=== PATIENT | female | born 1970 | race Caucasian/White ===

== ENCOUNTER 2018-12-05 06:50 | Emergency (ER) | payer OTHER ==
[~2018-12-05] VITALS: Ht 167.6 cm; Wt 79.4 kg
[~2018-12-05 06:50] MED LIST: COMBIVENT RESPIM4 GM INH; DOXYCYCLINE HY100 M3 PO; PREDNISONE20 MG PO; PROVENTIL HFA6.7 GM INH
[2018-12-05] MEDS ORDERED: PREDNISONE20 MG PO (07:21)
[2018-12-05] MEDS ORDERED: VENTOLIN HFA18 GM INH (07:21)
== END 2018-12-05 07:50 | disposition home or self-care (01) ==
LOC: ED 06:50
DX: J40 Bronchitis, not specified as acute or chronic (principal); J98.01 Acute bronchospasm; F17.200 Nicotine dependence, unspecified, uncomplicated; Z90.710 Acquired absence of both cervix and uterus
CPT/HCPCS: 94640; 99283; J7512

== ENCOUNTER 2020-04-29 14:54 | Emergency (ER) | payer OTHER ==
[~2020-04-29] VITALS: Ht 167.6 cm; Wt 79.4 kg
[~2020-04-29 14:54] MED LIST changes: +VENTOLIN HFA18 GM INH
[2020-04-29] MEDS ORDERED: CYCLOBENZAPRINE10 MG PO (17:31)
== END 2020-04-29 17:42 | disposition home or self-care (01) ==
LOC: ED 14:54
DX: S16.1XXA Strain of muscle, fascia and tendon at neck level, initial encounter (principal); S50.12XA Contusion of left forearm, initial encounter; S50.11XA Contusion of right forearm, initial encounter; V43.52XA Car driver injured in collision with other type car in traffic accident, initial encounter; F17.200 Nicotine dependence, unspecified, uncomplicated
CPT/HCPCS: 99283

== ENCOUNTER 2024-03-20 17:05 | Emergency (ER) | payer OTHER ==
[~2024-03-20] VITALS: Ht 167.6 cm; Wt 79.6 kg
[~2024-03-20 17:05] MED LIST changes: +CYCLOBENZAPRINE10 MG PO
--- OUTSIDE RECORDS SUMMARY | 2024-03-20 17:11 | XMS ---
PreManage Notification: [employer] Events No recent Security Events currently on file CRITERIA MET - Group Notification CARE PROVIDERS -, [facility] Dentist: Choker Setter [facility] PHONE: [phone] -[place]- Dentist: Choker Setter [facility], [facility] PHONE: [phone] Dory has no Care Guidelines for this patient. Care History Medical/Surgical 05/17/2020 [facility] \R\- [facility] CALLED PATIENT- NO ANSWER- LEFT A MESSAGE \R\- NO PCP LETTER SENT TO PATIENT E.D. VISIT COUNT (12 MO.) 3 [facility] TOTAL 3 NOTE: Visits indicate total known visits. ED/UCC VISIT TRACKING (12 MO.) 03/20/2024 17:05 [facility] TYPE: Emergency COMPLAINT: - ABDOMINAL PAIN 10/27/2023 17:23 [facility] [place] TYPE: Emergency COMPLAINT: - ABDOMINAL PAIN DIAGNOSES: - Acquired absence of both cervix and uterus - Calculus of kidney - Constipation, unspecified - Nicotine dependence, unspecified, uncomplicated - Pelvic and perineal pain - Ventral hernia without obstruction or gangrene 09/29/2023 13:03 [facility] [place] TYPE: Emergency COMPLAINT: - EYE PAIN DIAGNOSES: - Conjunctival edema, left eye - Nicotine dependence, unspecified, uncomplicated - Other specified disorders of eye and adnexa INPATIENT VISIT TRACKING (12 MO.) No inpatient visits to display in this time frame [email or web address]
[2024-03-20] MEDS ORDERED: ondansetron HCL 4 MG/2 ML VIAL IV ONE (17:30)
[2024-03-20 17:49] LABS: BASOPHILS 0.9 % (0-2); EOSINOPHILS 1.9 % (0-6); HEMATOCRIT 41.3 % (35.0-50.0); HEMOGLOBIN 14.3 g/dL (12.0-18.0); LYMPHOCYTES 32.6 % (24-44); MCH 32.9 (27-36); MCHC 34.6 g/dl (30-36); MCV 95.1 fl (81-99); MONOCYTES 9.2 % (0-12); NEUTROPHILS 55.4 % (39-80); PLATELET COUNT 337 K/uL (140-440); RBC 4.34 M/ul (4.3-5.7); RDW 12.7 (10.5-15.0)
[2024-03-20 18:03] LABS: ALBUMIN 3.9 g/dL (3.4-5.0); ALBUMIN/GLOBULIN RATIO 1.22 (1.1-2.4); ANION GAP 14.1 (7-21); BILIRUBIN, TOTAL 0.3 ng/dL (0.2-1.0); BUN/CREATININE RATIO 13.46 (6.0-28.6); CALCIUM 9.6 mg/dL (8.5-10.1); CREATININE, SERUM 1.04 mg/dL (0.55-1.02); POTASSIUM 4.1 mmol/L (3.5-5.1); PROTEIN, TOTAL 7.1 g/dL (6.4-8.2)
[2024-03-20 18:30] LABS: BILIRUBIN, URINE NEGATIVE (negative); BLOOD/HGB, URINE NEGATIVE (Negative); KETONE, URINE NEGATIVE (Negative); LEUK ESTERASE, URINE NEGATIVE (negative); NITRITE, URINE NEGATIVE (negative)
[2024-03-20] MEDS ORDERED: LIDOCAINE & ANTACID 35 ML BTL PO ONE (19:00)
[2024-03-20] MEDS ORDERED: PANTOPRAZOLE SODIUM 40 MG TABEC PO ONE (19:30)
[2024-03-20 19:44] VITALS: BP 128/79
== END 2024-03-20 19:44 | disposition home or self-care (01) ==
LOC: ED 17:05
PROVIDERS: Emergency Medicine
DX: R10.13 Epigastric pain (principal); F17.200 Nicotine dependence, unspecified, uncomplicated
CPT/HCPCS: 36415; 80053; 81003; 83690; 85025; 99284; A9270